=== PATIENT | male | born 1995 | race Caucasian/White ===

== ENCOUNTER 2017-10-16 00:49 | Inpatient (IN) | payer OTHER ==
[2017-10-16] MEDS: SOD CHLORIDE 0.9% 1,000 ML IV ×2 (02:00→03:31)
[2017-10-16 02:20] LABS: ADD MAN DIFF? NO
[2017-10-16 02:22] LABS: WHITE BLOOD COUNT 10.4 10^3/ul (4.8-10.8)
[2017-10-16 02:22] LABS: BASOPHIL # 0.1 10^3/ul (0.0-0.1); BASOPHILS % 0.5 % (0.0-2.0); EOSINOPHILS # 0.1 10^3/ul (0.0-0.5); EOSINOPHILS % 0.7 % (0.0-7.0); LYMPHOCYTES # 2.8 10^3/ul (0.8-2.9); LYMPHOCYTES % 27.3 % (18.0-55.0); MEAN CORPUSCULAR HEMOGLOBIN 32.2 pg (29.0-33.0); MEAN CORPUSCULAR HGB CONC 35.7 g/dl (32.0-37.0); MEAN CORPUSCULAR VOLUME 90.1 fl (72.0-104.0); MEAN PLATELET VOLUME 11.2 fl (7.4-10.4); MONOCYTE # 1.1 10^3/ul (0.3-0.9); MONOCYTES % 10.2 % (0.0-13.0); NEUTROPHIL # 6.3 10^3/ul (1.6-7.5); NEUTROPHILS % 61.1 % (30.0-74.0); PLATELET COUNT 364 10^3/UL (140-415); RED BLOOD COUNT 4.66 10^6/ul (4.70-6.10); RED CELL DISTRIBUTION WIDTH 11.8 % (11.5-14.5)
[2017-10-16] MEDS: LORAZEPAM 2 MG INJ IV (02:30)
[2017-10-16] MEDS ORDERED: LORAZEPAM 2 MG INJ (02:36)
[2017-10-16] MEDS: INSULIN HUMAN REGULAR 100 UNIT in SOD CHLORIDE 0.9% 99 ML IV (02:39)
[2017-10-16 02:41] LABS: ALANINE AMINOTRANSFERASE 26 IU/L (13-69); ALBUMIN 4.7 g/dl (3.3-4.9); ALBUMIN/GLOBULIN RATIO 1.67; ALKALINE PHOSPHATASE 113 IU/L (42-121); ANION GAP 27 (8-16); ASPARTATE AMINO TRANSFERASE 19 IU/L (15-46); BLOOD UREA NITROGEN 12 mg/dl (7-20); CALCIUM 8.9 mg/dl (8.4-10.2); CARBON DIOXIDE 17 mmol/L (21-31); CHLORIDE 94 mmol/L (97-110); CREATININE 0.79 mg/dl (0.61-1.24); POTASSIUM 4.4 mmol/L (3.5-5.1); SODIUM 134 mmol/L (135-144); TOTAL PROTEIN 7.5 g/dl (6.1-8.1)
[2017-10-16 02:46] LABS: GLUCOSE 563 mg/dl (70-220)
[2017-10-16] MEDS ORDERED: ONDANSETRON 4 MG INJ IV (03:00)
[2017-10-16] MEDS ORDERED: DEXTROSE 50% 50 ML SYRINGE IV ×2 (03:00)
[2017-10-16] MEDS ORDERED: INSULIN REGULAR, HUMAN 100 UNIT/1 ML 3ML VIAL IV (03:00)
[2017-10-16] MEDS ORDERED: morphine 2 MG INJ IV (03:00)
[2017-10-16] MEDS ORDERED: INSULIN HUMAN REGULAR 100 UNIT in SOD CHLORIDE 0.9% 99 ML IV (03:00)
[2017-10-16] MEDS ORDERED: ACETAMINOPHEN 650MG/20.3ML CUP PO (03:00)
[2017-10-16] MEDS: ACCU-CHEK XX ×17 (03:16→23:15)
[2017-10-16] MEDS: DEXTROSE 5%-0.45% NACL 1,000 ML IV ×3 (05:29→11:48)
[2017-10-16] MEDS ORDERED: LORAZEPAM 2 MG INJ IV (05:30)
[2017-10-16 07:09] LABS: LACTIC ACID 1.2 mmol/L (0.5-2.0)
[2017-10-16] MEDS: FAMOTIDINE 20 MG INJ IV ×2 (08:45→23:19)
[2017-10-16] MEDS: ENOXAPARIN 30 MG/0.3 ML SYG SC (08:48)
[2017-10-16 13:51] LABS: LACTIC ACID 1.2 mmol/L (0.5-2.0)
[2017-10-16 14:01] LABS: ANION GAP 17 (8-16); BLOOD UREA NITROGEN 8 mg/dl (7-20); CALCIUM 8.4 mg/dl (8.4-10.2); CARBON DIOXIDE 23 mmol/L (21-31); CHLORIDE 104 mmol/L (97-110); CREATININE 0.52 mg/dl (0.61-1.24); GLUCOSE 106 mg/dl (70-220); POTASSIUM 3.5 mmol/L (3.5-5.1); SODIUM 140 mmol/L (135-144)
[2017-10-16 14:02] LABS: MAGNESIUM 1.9 mg/dl (1.7-2.5)
[2017-10-16 14:02] LABS: PHOSPHORUS 3.6 mg/dl (2.5-4.9)
[2017-10-16] MEDS ORDERED: INSULIN GLARGINE [LANtus] 3 ML PEN SC (20:00)
[2017-10-16] MEDS: INSULIN ASPART [NOVOLOG] 3 ML PEN SC (23:33)
[2017-10-17] MEDS: ACCU-CHEK XX (01:50)
[2017-10-17 05:32] LABS: ADD MAN DIFF? NO
[2017-10-17 05:36] LABS: BASOPHILS % 0.4 % (0.0-2.0); EOSINOPHILS # 0.1 10^3/ul (0.0-0.5); EOSINOPHILS % 1.4 % (0.0-7.0); HEMATOCRIT 37.4 % (42.0-52.0); HEMOGLOBIN 13.6 g/dl (14.0-18.0); LYMPHOCYTES # 1.8 10^3/ul (0.8-2.9); LYMPHOCYTES % 37.6 % (18.0-55.0); MEAN CORPUSCULAR HEMOGLOBIN 32.6 pg (29.0-33.0); MEAN CORPUSCULAR HGB CONC 36.4 g/dl (32.0-37.0); MEAN CORPUSCULAR VOLUME 89.7 fl (72.0-104.0); MEAN PLATELET VOLUME 11.3 fl (7.4-10.4); MONOCYTE # 0.4 10^3/ul (0.3-0.9); NEUTROPHIL # 2.6 10^3/ul (1.6-7.5); NEUTROPHILS % 52.4 % (30.0-74.0); PLATELET COUNT 290 10^3/UL (140-415); RED BLOOD COUNT 4.17 10^6/ul (4.70-6.10); RED CELL DISTRIBUTION WIDTH 12.1 % (11.5-14.5)
[2017-10-17 05:36] LABS: WHITE BLOOD COUNT 4.9 10^3/ul (4.8-10.8)
[2017-10-17 06:35] LABS: ANION GAP 18 (8-16); BLOOD UREA NITROGEN 10 mg/dl (7-20); CALCIUM 8.3 mg/dl (8.4-10.2); CARBON DIOXIDE 23 mmol/L (21-31); CHLORIDE 101 mmol/L (97-110); CREATININE 0.69 mg/dl (0.61-1.24); GLUCOSE 393 mg/dl (70-220); POTASSIUM 3.4 mmol/L (3.5-5.1); SODIUM 139 mmol/L (135-144)
[2017-10-17 06:43] LABS: PHOSPHORUS 4.5 mg/dl (2.5-4.9)
[2017-10-17 06:43] LABS: MAGNESIUM 1.7 mg/dl (1.7-2.5)
[2017-10-17] MEDS: DEXTROSE 5%-0.45% NACL 1,000 ML IV (07:50)
[2017-10-17 08:14] LABS: HEMOGLOBIN A1C 11.2 % (0-5.9)
[2017-10-17] MEDS: INSULIN ASPART [NOVOLOG] 3 ML PEN SC ×7 (08:24→21:00)
[2017-10-17] MEDS: INSULIN GLARGINE [LANtus] 3 ML PEN SC (08:41)
[2017-10-17] MEDS: ENOXAPARIN 30 MG/0.3 ML SYG SC (09:01)
[2017-10-17] MEDS: FAMOTIDINE 20 MG INJ IV (09:02)
[2017-10-17] MEDS ORDERED: FAMOTIDINE 20 MG TAB (21:09)
[2017-10-17] MEDS: FAMOTIDINE 20 MG TAB PO (21:39)
[2017-10-18] MEDS: ACCU-CHEK XX (02:00)
[2017-10-18 06:46] LABS: ADD MAN DIFF? NO
[2017-10-18 06:49] LABS: WHITE BLOOD COUNT 4.6 10^3/ul (4.8-10.8)
[2017-10-18 06:49] LABS: BASOPHILS % 0.7 % (0.0-2.0); EOSINOPHILS % 0.9 % (0.0-7.0); HEMATOCRIT 39.5 % (42.0-52.0); HEMOGLOBIN 14.3 g/dl (14.0-18.0); LYMPHOCYTES # 2.2 10^3/ul (0.8-2.9); LYMPHOCYTES % 48.1 % (18.0-55.0); MEAN CORPUSCULAR HEMOGLOBIN 32.6 pg (29.0-33.0); MEAN CORPUSCULAR HGB CONC 36.2 g/dl (32.0-37.0); MEAN CORPUSCULAR VOLUME 90.2 fl (72.0-104.0); MEAN PLATELET VOLUME 11.2 fl (7.4-10.4); MONOCYTE # 0.4 10^3/ul (0.3-0.9); MONOCYTES % 8.3 % (0.0-13.0); NEUTROPHIL # 1.9 10^3/ul (1.6-7.5); NEUTROPHILS % 41.8 % (30.0-74.0); PLATELET COUNT 288 10^3/UL (140-415); RED BLOOD COUNT 4.38 10^6/ul (4.70-6.10); RED CELL DISTRIBUTION WIDTH 12.1 % (11.5-14.5)
[2017-10-18 07:14] LABS: ANION GAP 13 (8-16); BLOOD UREA NITROGEN 16 mg/dl (7-20); CALCIUM 8.3 mg/dl (8.4-10.2); CARBON DIOXIDE 30 mmol/L (21-31); CHLORIDE 99 mmol/L (97-110); GLUCOSE 318 mg/dl (70-220); POTASSIUM 3.2 mmol/L (3.5-5.1); SODIUM 139 mmol/L (135-144)
[2017-10-18] MEDS: FAMOTIDINE 20 MG TAB PO (08:42)
[2017-10-18] MEDS: ENOXAPARIN 30 MG/0.3 ML SYG SC (08:44)
[2017-10-18] MEDS: INSULIN GLARGINE [LANtus] 3 ML PEN SC (08:46)
[2017-10-18] MEDS: INSULIN ASPART [NOVOLOG] 3 ML PEN SC ×6 (08:47→17:55)
[2017-10-18] MEDS: POTASSIUM CHLORIDE 20 MEQ POWDER FOR ORAL SOLN PO (13:35)
[2017-10-18] MEDS ORDERED: NPH, HUMAN INSULIN ISOPHANE 3ML VIAL SC (20:00)
[2017-10-19] MEDS ORDERED: INSULIN ASPART [NOVOLOG] 3 ML PEN SC ×2 (07:35→11:45)
[2017-10-19] MEDS ORDERED: INSULIN GLARGINE [LANtus] 3 ML PEN SC (08:00)
== END 2017-10-18 19:02 | disposition home or self-care (01) | DRG 639 ==
LOC: E/R 00:49 → MS3 02:25
PROVIDERS: Internal Medicine
DX: E10.10 Type 1 diabetes mellitus with ketoacidosis without coma (principal); Z91.14 Patient's other noncompliance with medication regimen
CPT/HCPCS: 71045; 80048; 80053; 82962; 83036; 83605; 83735; 84100; 85025

== ENCOUNTER 2018-02-11 00:13 | Inpatient (IN) | payer OTHER ==
[2018-02-11] MEDS: LACTATED RINGER'S 1,000 ML IV (00:18)
[2018-02-11] MEDS: morphine 4 MG/ML VIAL IV (00:25)
[2018-02-11] MEDS: ONDANSETRON 4 MG INJ IV ×2 (00:25→00:26)
[2018-02-11] MEDS: SOD CHLORIDE 0.9% 2,000 ML IV (00:26)
[2018-02-11 00:34] LABS: ADD MAN DIFF? NO
[2018-02-11 00:37] LABS: BASOPHIL # 0.1 10^3/ul (0.0-0.1); BASOPHILS % 0.5 % (0.0-2.0); HEMATOCRIT 52.8 % (42.0-52.0); HEMOGLOBIN 17.9 g/dl (14.0-18.0); LYMPHOCYTES # 0.9 10^3/ul (0.8-2.9); LYMPHOCYTES % 6.5 % (18.0-55.0); MEAN CORPUSCULAR HEMOGLOBIN 32.7 pg (29.0-33.0); MEAN CORPUSCULAR HGB CONC 33.9 g/dl (32.0-37.0); MEAN CORPUSCULAR VOLUME 96.5 fl (72.0-104.0); MEAN PLATELET VOLUME 10.5 fl (7.4-10.4); MONOCYTE # 0.8 10^3/ul (0.3-0.9); MONOCYTES % 5.6 % (0.0-13.0); NEUTROPHIL # 12.2 10^3/ul (1.6-7.5); NEUTROPHILS % 86.9 % (30.0-74.0); PLATELET COUNT 462 10^3/UL (140-415); RED BLOOD COUNT 5.47 10^6/ul (4.70-6.10); RED CELL DISTRIBUTION WIDTH 11.5 % (11.5-14.5)
[2018-02-11 01:01] LABS: LACTIC ACID 1.9 mmol/L (0.5-2.0)
[2018-02-11 01:02] LABS: ALANINE AMINOTRANSFERASE 35 IU/L (13-69); ALBUMIN 5.2 g/dl (3.3-4.9); ALBUMIN/GLOBULIN RATIO 1.33; ALKALINE PHOSPHATASE 185 IU/L (42-121); ANION GAP 37 (8-16); ASPARTATE AMINO TRANSFERASE 20 IU/L (15-46); BLOOD UREA NITROGEN 17 mg/dl (7-20); CALCIUM 9.7 mg/dl (8.4-10.2); CHLORIDE 97 mmol/L (97-110); CREATININE 0.97 mg/dl (0.61-1.24); LIPASE 28 U/L (23-300); POTASSIUM 4.1 mmol/L (3.5-5.1); SODIUM 139 mmol/L (135-144); TOTAL PROTEIN 9.1 g/dl (6.1-8.1)
[2018-02-11 01:07] LABS: CARBON DIOXIDE 9 mmol/L (21-31); GLUCOSE 400 mg/dl (70-220)
[2018-02-11 01:50] LABS: MODE ROOM AIR; MetHgb Venous 0.3 %; Sample Type Blood venous; Site VENOUS LINE; Venous COHb 0.3 %; Venous Fraction OxyHgb 33.7 %; Venous Oxygen Sat 33.9 mmHG (55.0-75.0); Venous Total Hemglobin 18.2 g/dl
[2018-02-11] MEDS: INSULIN HUMAN REGULAR 100 UNIT in SOD CHLORIDE 0.9% 99 ML IV ×2 (01:51→07:59)
[2018-02-11 02:25] LABS: LACTIC ACID 1.2 mmol/L (0.5-2.0)
[2018-02-11 02:26] LABS: ANION GAP 38 (8-16); BLOOD UREA NITROGEN 17 mg/dl (7-20); CALCIUM 8.5 mg/dl (8.4-10.2); CHLORIDE 101 mmol/L (97-110); GLUCOSE 343 mg/dl (70-220); POTASSIUM 4.3 mmol/L (3.5-5.1); SODIUM 143 mmol/L (135-144)
[2018-02-11 02:43] LABS: CARBON DIOXIDE 8 mmol/L (21-31)
[2018-02-11] MEDS: NALOXONE (0.4 MG/ML) INJ IV (03:23)
[2018-02-11] MEDS: METOCLOPRAMIDE 10 MG INJ IV (04:23)
[2018-02-11] MEDS: DEXTROSE 5%-0.45% NACL 500 ML BAG IV (04:28)
[2018-02-11] MEDS: DEXTROSE 5%-0.45% NACL 1,000 ML BAG IV (05:05)
[2018-02-11 05:43] LABS: ANION GAP 32 (8-16); BLOOD UREA NITROGEN 15 mg/dl (7-20); CHLORIDE 111 mmol/L (97-110); CREATININE 0.68 mg/dl (0.61-1.24); GLUCOSE 228 mg/dl (70-220); POTASSIUM 4.4 mmol/L (3.5-5.1); SODIUM 144 mmol/L (135-144)
[2018-02-11 05:57] LABS: CARBON DIOXIDE 5 mmol/L (21-31)
[2018-02-11] MEDS: SOD CHLORIDE 0.9% 1,000 ML IV ×2 (06:30→09:40)
[2018-02-11 06:39] LABS: ANION GAP 27 (8-16); BLOOD UREA NITROGEN 15 mg/dl (7-20); CALCIUM 8.3 mg/dl (8.4-10.2); CHLORIDE 111 mmol/L (97-110); CREATININE 0.68 mg/dl (0.61-1.24); GLUCOSE 224 mg/dl (70-220); POTASSIUM 4.3 mmol/L (3.5-5.1); SODIUM 144 mmol/L (135-144)
[2018-02-11 06:49] LABS: CARBON DIOXIDE 10 mmol/L (21-31)
[2018-02-11 07:09] LABS: ADD UMIC YES; UR ASCORBIC ACID NEGATIVE (NEGATIVE); UR BACTERIA FEW /HPF (NONE SEEN); UR BILIRUBIN (Dip) NEGATIVE (NEGATIVE); UR BLOOD (Dip) 2+ mg/dL (NEGATIVE); UR CLARITY CLEAR (CLEAR); UR COLOR STRAW (YELLOW); UR GLUCOSE (Dip) 3+ mg/dL (NEGATIVE); UR KETONES (Dip) 2+ mg/dL (NEGATIVE); UR LEUKOCYTE ESTERASE (Dip) NEGATIVE Leu/ul (NEGATIVE); UR NITRITE (Dip) NEGATIVE (NEGATIVE); UR RBC 3 /HPF (0-5); UR SPECIFIC GRAVITY (Dip) 1.014 (1.003-1.030); UR TOTAL PROTEIN (Dip) 1+ mg/dl (NEGATIVE); UR UROBILINOGEN (Dip) NEGATIVE (NEGATIVE); UR WBC 0 /HPF (0-5)
[2018-02-11] MEDS ORDERED: DEXTROSE 50% 25 ML IV (07:30)
[2018-02-11] MEDS ORDERED: DEXTROSE 50% 50 ML IV (07:30)
[2018-02-11] MEDS ORDERED: ADJUSTMENT OF INSULIN INFUSION RATE (DKA PROTOCOL) XX (07:30)
[2018-02-11] MEDS ORDERED: ONDANSETRON 4 MG INJ IV (07:30)
[2018-02-11] MEDS ORDERED: POTASSIUM CHLORIDE 50 ML IVPB (07:30)
[2018-02-11] MEDS ORDERED: DEXTROSE 50% 50 ML SYRINGE IV ×2 (07:30)
[2018-02-11] MEDS ORDERED: ACETAMINOPHEN 325 MG TAB PO (07:30)
[2018-02-11] MEDS ORDERED: INSULIN REGULAR, HUMAN 100 UNIT in SOD CHLORIDE 0.9% 100 ML IV (07:30)
[2018-02-11 07:56] LABS: AMPHETAMINE/METHAMPHETAMINE POSITIVE (NEGATIVE); BARBITURATES NEGATIVE (NEGATIVE); BENZODIAZEPINES NEGATIVE (NEGATIVE); CANNABINOIDS POSITIVE (NEGATIVE); COCAINE NEGATIVE (NEGATIVE); OPIATES NEGATIVE (NEGATIVE)
[2018-02-11 08:34] LABS: HEMOGLOBIN A1C 12.8 % (0-5.9)
[2018-02-11 08:38] LABS: ANION GAP 22 (8-16); BLOOD UREA NITROGEN 14 mg/dl (7-20); CALCIUM 8.3 mg/dl (8.4-10.2); CARBON DIOXIDE 12 mmol/L (21-31); CHLORIDE 112 mmol/L (97-110); CREATININE 0.64 mg/dl (0.61-1.24); GLUCOSE 222 mg/dl (70-220); POTASSIUM 4.4 mmol/L (3.5-5.1); SODIUM 142 mmol/L (135-144)
[2018-02-11 12:45] LABS: ANION GAP 15 (8-16); BLOOD UREA NITROGEN 11 mg/dl (7-20); CALCIUM 7.9 mg/dl (8.4-10.2); CARBON DIOXIDE 18 mmol/L (21-31); CHLORIDE 113 mmol/L (97-110); CREATININE 0.55 mg/dl (0.61-1.24); GLUCOSE 180 mg/dl (70-220); POTASSIUM 3.6 mmol/L (3.5-5.1); SODIUM 142 mmol/L (135-144)
[2018-02-11 16:07] LABS: ADD MAN DIFF? NO
[2018-02-11 16:09] LABS: BASOPHILS % 0.1 % (0.0-2.0); EOSINOPHILS # 0.1 10^3/ul (0.0-0.5); EOSINOPHILS % 0.6 % (0.0-7.0); HEMATOCRIT 38.8 % (42.0-52.0); HEMOGLOBIN 13.9 g/dl (14.0-18.0); LYMPHOCYTES # 1.3 10^3/ul (0.8-2.9); LYMPHOCYTES % 15.1 % (18.0-55.0); MEAN CORPUSCULAR HEMOGLOBIN 33.3 pg (29.0-33.0); MEAN CORPUSCULAR HGB CONC 35.8 g/dl (32.0-37.0); MEAN PLATELET VOLUME 10.2 fl (7.4-10.4); MONOCYTE # 1.1 10^3/ul (0.3-0.9); NEUTROPHIL # 5.9 10^3/ul (1.6-7.5); NEUTROPHILS % 70.8 % (30.0-74.0); PLATELET COUNT 275 10^3/UL (140-415); RED BLOOD COUNT 4.17 10^6/ul (4.70-6.10); RED CELL DISTRIBUTION WIDTH 11.7 % (11.5-14.5)
[2018-02-11 16:09] LABS: WHITE BLOOD COUNT 8.3 10^3/ul (4.8-10.8)
[2018-02-11] MEDS: INSULIN GLARGINE [LANtus] 3 ML PEN SC (16:16)
[2018-02-11] MEDS: 1/2 NS + KCL 20 MEQ 1,000 ML IV (16:17)
[2018-02-11 16:27] LABS: ANION GAP 15 (8-16); BLOOD UREA NITROGEN 9 mg/dl (7-20); CALCIUM 7.8 mg/dl (8.4-10.2); CARBON DIOXIDE 18 mmol/L (21-31); CHLORIDE 107 mmol/L (97-110); CREATININE 0.54 mg/dl (0.61-1.24); GLUCOSE 169 mg/dl (70-220); POTASSIUM 3.4 mmol/L (3.5-5.1); SODIUM 137 mmol/L (135-144)
[2018-02-11 16:28] LABS: MAGNESIUM 1.6 mg/dl (1.7-2.5)
[2018-02-11 16:28] LABS: PHOSPHORUS 2.9 mg/dl (2.5-4.9)
[2018-02-11] MEDS: INSULIN ASPART [NOVOLOG] 3 ML PEN SC ×3 (17:26→20:54)
[2018-02-11 17:27] LABS: ANION GAP 16 (8-16); BLOOD UREA NITROGEN 9 mg/dl (7-20); CALCIUM 7.8 mg/dl (8.4-10.2); CARBON DIOXIDE 17 mmol/L (21-31); CHLORIDE 107 mmol/L (97-110); CREATININE 0.53 mg/dl (0.61-1.24); GLUCOSE 170 mg/dl (70-220); POTASSIUM 3.4 mmol/L (3.5-5.1); SODIUM 137 mmol/L (135-144)
[2018-02-11 17:31] LABS: MAGNESIUM 1.6 mg/dl (1.7-2.5); PHOSPHORUS 2.9 mg/dl (2.5-4.9)
[2018-02-11 17:44] LABS: ALANINE AMINOTRANSFERASE 22 IU/L (13-69); ALKALINE PHOSPHATASE 93 IU/L (42-121); ASPARTATE AMINO TRANSFERASE 16 IU/L (15-46)
[2018-02-11 17:45] LABS: BILIRUBIN,INDIRECT 1.1 mg/dl (0-1.1); BILIRUBIN,TOTAL 1.1 mg/dl (0.2-1.3)
[2018-02-11 17:46] LABS: ALBUMIN/GLOBULIN RATIO 1.11; TOTAL PROTEIN 5.7 g/dl (6.1-8.1)
[2018-02-11 19:29] LABS: ANION GAP 17 (8-16); BLOOD UREA NITROGEN 10 mg/dl (7-20); CALCIUM 8.2 mg/dl (8.4-10.2); CARBON DIOXIDE 21 mmol/L (21-31); CHLORIDE 102 mmol/L (97-110); CREATININE 0.62 mg/dl (0.61-1.24); GLUCOSE 222 mg/dl (70-220); POTASSIUM 3.2 mmol/L (3.5-5.1); SODIUM 137 mmol/L (135-144)
[2018-02-11] MEDS: ACCU-CHEK XX ×5 (20:50)
[2018-02-12] MEDS: INSULIN ASPART [NOVOLOG] 3 ML PEN SC ×8 (02:18→20:32)
[2018-02-12] MEDS: 1/2 NS + KCL 20 MEQ 1,000 ML IV ×3 (02:19→21:41)
[2018-02-12 05:13] LABS: ADD MAN DIFF? NO
[2018-02-12 05:20] LABS: BASOPHILS % 0.3 % (0.0-2.0); EOSINOPHILS # 0.1 10^3/ul (0.0-0.5); EOSINOPHILS % 0.9 % (0.0-7.0); HEMATOCRIT 39.4 % (42.0-52.0); HEMOGLOBIN 14.2 g/dl (14.0-18.0); LYMPHOCYTES # 1.9 10^3/ul (0.8-2.9); LYMPHOCYTES % 23.9 % (18.0-55.0); MEAN CORPUSCULAR HEMOGLOBIN 32.6 pg (29.0-33.0); MEAN CORPUSCULAR VOLUME 90.6 fl (72.0-104.0); MEAN PLATELET VOLUME 10.4 fl (7.4-10.4); MONOCYTE # 0.7 10^3/ul (0.3-0.9); MONOCYTES % 9.2 % (0.0-13.0); NEUTROPHIL # 5.1 10^3/ul (1.6-7.5); NEUTROPHILS % 65.4 % (30.0-74.0); PLATELET COUNT 324 10^3/UL (140-415); RED BLOOD COUNT 4.35 10^6/ul (4.70-6.10); RED CELL DISTRIBUTION WIDTH 11.5 % (11.5-14.5)
[2018-02-12 05:20] LABS: WHITE BLOOD COUNT 7.7 10^3/ul (4.8-10.8)
[2018-02-12] MEDS: PANTOPRAZOLE 40 MG INJ IV (05:32)
[2018-02-12 05:34] LABS: ANION GAP 21 (8-16); BLOOD UREA NITROGEN 14 mg/dl (7-20); CALCIUM 8.8 mg/dl (8.4-10.2); CARBON DIOXIDE 19 mmol/L (21-31); CHLORIDE 100 mmol/L (97-110); CREATININE 0.56 mg/dl (0.61-1.24); GLUCOSE 262 mg/dl (70-220); POTASSIUM 3.5 mmol/L (3.5-5.1); SODIUM 136 mmol/L (135-144)
[2018-02-12 14:32] LABS: CREATININE, RANDOM URINE 28 mg/dL (20-370); MICROALBUMIN 9.4 mg/dL; MICROALBUMIN/CREATININE RATIO 336 (<30)
[2018-02-12] MEDS ORDERED: INSULIN GLARGINE [LANtus] 3 ML PEN SC (20:00)
[2018-02-12] MEDS: INSULIN GLARGINE [LANtus] 3 ML PEN SC (20:31)
[2018-02-12] MEDS: MAGNESIUM SULFATE 2 GM/50 ML 50 ML IVPB (21:34)
[2018-02-13] MEDS: INSULIN ASPART [NOVOLOG] 3 ML PEN SC ×5 (02:06→12:56)
[2018-02-13] MEDS: PANTOPRAZOLE 40 MG INJ IV (04:53)
[2018-02-13 05:28] LABS: MAGNESIUM 2.2 mg/dl (1.7-2.5)
[2018-02-13 05:29] LABS: ANION GAP 13 (8-16); BLOOD UREA NITROGEN 20 mg/dl (7-20); CALCIUM 8.5 mg/dl (8.4-10.2); CARBON DIOXIDE 28 mmol/L (21-31); CHLORIDE 99 mmol/L (97-110); CREATININE 0.56 mg/dl (0.61-1.24); GLUCOSE 265 mg/dl (70-220); POTASSIUM 3.5 mmol/L (3.5-5.1); SODIUM 136 mmol/L (135-144)
[2018-02-13] MEDS: 1/2 NS + KCL 20 MEQ 1,000 ML IV (13:20)
[2018-02-13] MEDS ORDERED: GLUCOSE GEL 15 GRAM TUBE BUCCAL (13:30)
[2018-02-13] MEDS ORDERED: GLUCOSE GEL 15 GRAM TUBE PO ×2 (13:30)
[2018-02-13] MEDS ORDERED: DEXTROSE 50% 50 ML SYRINGE IV ×2 (13:30)
[2018-02-13] MEDS ORDERED: GLUCAGON 1 MG INJ IM (13:30)
[2018-02-13] MEDS ORDERED: INSULIN ASPART [NOVOLOG] 3 ML PEN SC (17:55)
== END 2018-02-13 16:28 | disposition left against medical advice (07) | DRG 638 ==
LOC: E/R 00:13 → MS1 06:02
DX: E10.10 Type 1 diabetes mellitus with ketoacidosis without coma (principal); E44.1 Mild protein-calorie malnutrition; Z68.1 Body mass index [BMI] 19.9 or less, adult; F15.10 Other stimulant abuse, uncomplicated; Z59.0 Homelessness
CPT/HCPCS: 36415; 80048; 80053; 80307; 81001; 82043; 82803; 82962; 83036; 83605; 83690; 83735; 84100; 85025; 93005; 96365; 96366; 96372; 96375; 96376; 99285-25